=== PATIENT | male | born 2000 ===

== ENCOUNTER 2020-09-02 20:39 | Emergency (ER) | payer SELFPAY ==
[2020-09-02] MEDS ORDERED: IBUPROFEN 600 MG TAB PO ONE (22:05)
[2020-09-02] MEDS ORDERED: ACETAMINOPHEN 500 MG TAB PO ONE (22:05)
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
[2020-09-03 00:41] VITALS: BP 124/88
[2020-09-03] MEDS ORDERED: IBUPROFEN 600 MG TAB PO ONE (01:00)
[2020-09-03] MEDS ORDERED: ACETAMINOPHEN 500 MG TAB PO ONE (01:00)
== END 2020-09-03 00:43 | disposition home or self-care (01) ==
LOC: ED 20:39
DX: S00.83XA Contusion of other part of head, initial encounter (principal); S43.402A Unspecified sprain of left shoulder joint, initial encounter; T07.XXXA Unspecified multiple injuries, initial encounter; M62.838 Other muscle spasm; I10 Essential (primary) hypertension; Z79.899 Other long term (current) drug therapy; V49.49XA Driver injured in collision with other motor vehicles in traffic accident, initial encounter; Y92.410 Unspecified street and highway as the place of occurrence of the external cause; Y93.89 Activity, other specified; Y99.8 Other external cause status
CPT/HCPCS: 70450; 72125; 99284